=== PATIENT | female | born 1950 | race Caucasian/White ===

== ENCOUNTER 2017-10-20 08:52 | Day surgery (SDC) | payer BC, SELFPAY ==
--- NOTE | 2017-10-17 10:30 | EKG12_ITS ---
Test Reason : PRE-OP Blood Pressure : / mmHG Vent. Rate : 060 BPM Atrial Rate : 060 BPM P-R Int : 166 ms QRS Dur : 090 ms QT Int : 430 ms P-R-T Axes : 011 -07 015 degrees QTc Int : 430 ms Normal sinus rhythm Normal ECG Confirmed by KASHIF WATERMAN, MELLY ([id number]), fan mail editor JANELL LEDBETTER ([id number]) on 10/18/2017 1:30:11 PM Referred By: Danette Aranda Confirmed By:MELLY ROWLAND MD
[2017-10-17 10:43] LABS: Hemoglobin 14.3 g/dl (12.0-15.0); Mean Corp Hgb Conc 33.3 g/gl (32-36); Mean Corpuscular Hgb 30.6 pg (27.0-32.0); Mean Corpuscular Volume 92.1 fL (81-99); Mean Platelet Vol. 10.7 fl (6.2-12.0); Platelet Count 157 K/mm3 (150-450); RBC Distribution Width CV 12.7 % (11.6-14.6); Red Blood Count 4.67 M/mm3 (4.2-5.4); Scan Indicated on CBC? Y/N NO; White Blood Count 4.7 K/mm3 (4.4-11.0)
[2017-10-17 11:01] LABS: Anion Gap 6 (5-15); BUN 19 mg/dL (7-18); BUN/Creat Ratio 26.7 RATIO (10-20); Calcium,Total 9.2 mg/dL (8.5-10.1); Chloride 107 mmol/L (98-107); Creatinine, Serum 0.71 mg/dL (0.55-1.02); EST Glomerular Filtration Rate 88 mL/min (>60); Est Glom Filt Rate - Afr Amer 106 mL/min (>60); Glucose 98 mg/dL (74-106); Potassium 3.7 mmol/L (3.5-5.1); Sodium Level 139 mmol/L (136-145)
--- NOTE | 2017-10-20 | EMB_PTH ---
PATIENT: TRAE AUGUSTIN LOC: [facility] [place][id number] AGE/SX: 67/F ROOM: RE10/20/[address]: Dr. Danette Aranda, MDDOB: 1950 BED: DIS: 10/20/2017 SPEC #: [id number] RECD: 10/20/17 15:00 STATUS: LAKEISHA CECILE #: [id number] NICK: 10/20/17 00:[address]: Danette Aranda DEPT: SURGICAL PATHOLOGY RECD BY: Vernon Flower ENTERED: 10/20/17 15:01 SP TYPE: ENDOM BX/C OTHR DR: MD Dr. Anthony Barrera III, MD Tissues: A - Endometrium, NOS B - Ovary, NOS Procedures: Surgery Specimen Level IV Surgery Specimen Level V HEADER OPERATION: Laparoscopic salpingo-oophorectomy, pelvic washings PRE-OP DIAGNOSIS: Persistent left ovarian cyst TISSUE SUBMITTED: A ? Endometrial curettings, B ? Bilateral ovaries and tubes MICROSCOPIC DIAGNOSIS A. Endometrial curettings: Scant strips of benign endometrial epithelium consistent with atrophic endometrium. Fragments of hyalinized benign endometrial polyp. Fragments of benign endocervical mucosa and mucous. B. Bilateral fallopian tubes and ovaries, bilateral salpingo-oophorectomy: Bilateral fallopian tubes - no pathologic diagnosis. Bilateral ovaries ? simple serous cystadenoma (2 and 6 cm in greatest dimension). LIYA:keron 10/21/17 MICROSCOPIC DESCRIPTION Slides are reviewed. GROSS DESCRIPTION A - Received in fixative is one container labeled with the patient's name and designated endometrial curettings. The specimen consists of multiple irregular fragments of franco soft tissue mixed with hemorrhagic mucoid tissue that in aggregate measure 1.5 x 1 x 0.1 cm. The specimen is totally submitted in one cassette. B - Received in fixative is one container labeled with the patient's name and designated bilateral ovaries and tubes. The specimen consists of bilateral fallopian tubes and ovaries. The fallopian tubes and ovaries are not identified as right or left. One of the fallopian tubes measure 3.5 cm in length and 0.5 cm in diameter. The fimbrial end is identified. No tubo-ovarian adhesions are noted. Adjacent ovary measures 5 x 1 x 1 cm and weighs 5 gm. The externa surface is inked black. Sections reveal a cyst filled with clear fluid measuring 2 cm in greatest dimension. The second fallopian tube measures 4.5 cm in length and 0.5 cm in diameter. The fimbrial end appears to be adherent focally to the ovary. The fallopian tube appears to be interrupted in the middle. Also present in the container are three detached pieces of tissue which appears to be portion of fallopian tube. These pieces are inked black. The second fallopian tube appears to consist of a collapsed cyst measuring 6 x 4 x 0.5 cm and weighing 9 gm. The outer surface of the cyst is smooth and it is inked black. The inner cyst wall is smooth without any papillation. The cyst wall measures 0.1 cm in thickness. [employer] sections are submitted in seven cassettes as follows: 1-4 ? one fallopian tube and adjacent ovary (1 ? fallopian tube, 2-4 ? adjacent ovary), 5-7 ? second fallopian tube and ovary (5 ? fallopian tube and detached pieces of tissue, 6 & 7 ? ovary). / SJ:rg 10/20/17 TC: 1 CPT: 92356, 08528 x2
--- NOTE | 2017-10-20 | FLU_PTH ---
PATIENT: TRAE AUGUSTIN LOC: [facility] – [place] U#:[id number] AGE/SX: 67/F ROOM: RE10/20/[address]: Dr. Danette Aranda, MDDOB: 1950 BED: DIS: 10/20/2017 SPEC #: [id number] RECD: 10/20/17 14:59 STATUS: LAKEISHA RECarmela #: [id number] NICK: 10/20/17 00:[address]: Danette Aranda DEPT: CYTOLOGY RECD BY: Vernon Flower ENTERED: 10/20/17 15:00 SP TYPE: Fluid OTHR DR: MD Dr. Anthony Barrera III, MD Tissues: Pelvis, NOS Procedures: Pap Stain (control) Special Stain Group II Surgery Specimen Level IV Cell Block Cytospin Fluid HEADER OPERATION: Laparoscopic salpingo-oophorectomy, pelvic washings PRE-OP DIAGNOSIS: Persistent left ovarian cyst TISSUE SUBMITTED: Pelvic washings for cytology DIAGNOSIS CYTOLOGY Pelvic washings for cytology (cytospin and cell block): Negative for malignant cells. LIYA:keron 10/21/17 CYTOLOGY STUDY Slides are reviewed. The specimen is bloody and consists of benign mesothelial cells. CYTOLOGY GROSS Received is 10 ml of pink cloudy fluid labeled with the patient's name and and designated per the requisition as pelvic washings. Submitted for cytology preparation including cell block. / 10/20/17 TC:5 CPT: 67560, 79423
[2017-10-20 09:06] VITALS: BP 127/87; PULSE 80; RESP 20; TEMP 36.9; O2SAT 98; BMI 21.4
[2017-10-20] MEDS: Bupivacaine Mpf 0.5% 30 ML VIAL (13:20)
[2017-10-20] MEDS: Ondansetron 4 MG/2 ML Vial (13:47)
--- NOTE | 2017-10-20 13:51 | PCM.DC.TUB ---
Discharge Diet: No Restrictions - Increase fluid intake for the next 48 hours. Discharge Activity: Return to Normal Activity, May Drive - when you are no longer taking pain/narcotic meds., May Shower, May Take a Tub Bath - in 7 days May shower in (days): 1 May resume sexual activity in: 1 week Lifting Restrictions: 15 lbs x 2 weeks Additional Activity Instructions:: Ambulate often the next week after surgery. Nothing in the vagina for 5 days. Call your doctor if your incision/area has: Continuous Slow Oozing, Sudden Increased Bleeding, Increased Pain/ Swelling, Increased Redness, Foul Smelling Discharge Call your doctor if you observe: Fever of 101 or Higher Allergies/Adverse Reactions: Allergies nitrofurantoin macrocrystalline [From Macrodantin] Allergy (Verified 10/13/17 08:43) Rash Medications to take at Discharge Citalopram Hydrobromide [Citalopram HBr] 40 mg PO DAILY 01/03/15 Ascorbic Acid [Vitamin C] 1,000 mg PO DAILY 10/13/17 Aspirin [Aspirin EC] 81 mg PO DAILY 10/13/17 Calcium Carbonate/Vitamin D3 [Calcium 500+D Tablet Chew] 1 each PO DAILY 10/13/17 Glucosam/Josiah-Msm1/C/Baljinder/Bosw [Osteo Bi-Flex Caplet] 2 each PO DAILY 10/13/17 Multivitamin with Iron [Multivitamins with Iron] 1 each PO DAILY 10/13/17 Naproxen Sodium [Naproxen Sodium ER] 500 mg PO DAILY 10/13/17 Terbinafine HCl [Lamisil] 250 mg PO DAILY 10/13/17 Primary Care Physician: Anthony Olivo III, MD [Primary Care Provider] - Please Follow Up With: Danette Aranda MD - [phone] When: as scheduled or as needed
--- NOTE | 2017-10-20 13:55 | PCM.OP.BLANK ---
Operative Report Date of Procedure: 10/20/17 Surgeon: Dr. Danette Aranda Director Of Consumer Marketing: Mary Davenport MS3 Pre op Diagnosis: Persistent right ovarian cyst, PMB Post OP Diagnosis: same Surgery Performed: D&C, Laparoscopic Bilateral salpingoophorectomy , pelvic washings Findings: large 6cm right ovarian cyst, Left Uteroovarian ligament with Mass, ? hematoma vs cyst Complications: none EBL: <5cc Anesthesia: General Specimens: Bilateral tubes and ovaries, pelvic washings Operative Note: After informed consent was obtained patient was taken to OR and placed in supine position. Anesthesia was given. patient was placed in yellow fin stirrups and prepped and draped in normal sterile fashion. bladder was drained with straight catheter with approximately 75cc of clear yellow urine expelled. Exam under anesthesia reviewed normal sized uterus with mobile right adnexal masses. Weighted speculum placed in posterior fornix of vaginal, single tooth tenaculum was used to gently grasped anterior lip of cervix. Uterus was sounded to 6. Cervix was then gently dilated in an incremental fashion. Was adequate dilation was achieved the sharp curettage was performed which yielded scant amount of tissue. The tissue was then sent to pathology for examination. Manipulator was placed without difficulty. At this time attention was then turned the abdominal portion of the procedure. 2 towel clamps were placed on either side of the umbilicus. Tented up lidocaine was injected. Small incision was made with a knife and a 5 mm trocar was placed under direct visualization. At this time once proper placement was achieved and confirmed CO2 gas was used to insufflate the intra-abdominal cavity. Upon inspection no adhesions noted large right ovarian cyst was noted small mass on the utero-ovarian ligament was noted on the left possible hematoma versus a cyst. This time the left lower quadrant port was placed first again lidocaine was injected incision was made with a knife and a 12 mm trocar was placed under direct visualization. A right lower quadrant port was placed in the same fashion that was a 5 mm port. At this time then the IP ligament on the right side was coagulated ligated using the LigaSure along with the utero-ovarian and the mesosalpinx to ensure that the entire ovary and tube were removed completely. This was repeated on the patient's left side the cyst was not ruptured in the intra-abdominal cavity. Once both were freed the specimens were placed in the Endo Catch bag. They were brought through the left lower quadrant port. The cyst was ruptured clear fluid and the cyst in the tubes and ovaries were removed without difficulty. At this time pelvic washings were collected 30 cc of normal saline was injected into the intra-abdominal cavity and at this time a red rubber catheter was used to suction out the washings. At this time procedure was deemed complete successful. There were no complications. Hemostasis was good on all pedicles. Jewel Stoddard using 0 Vicryl suture was used to close the left lower quadrant port. Trochars were removed. Skin incisions were closed using the 4-0 Monocryl suture. Followed by Dermabond. At this time procedure was deemed complete and successful. Uterine manipulator was removed. Vaginal sweep was negative. Intstrument and lap count correct x 2. I anticipate normal postoperative course. No implantable devices
[2017-10-20 14:01] VITALS: BP 127/87; BP 142/69; PULSE 79; RESP 16; TEMP 36.1; O2SAT 91
[2017-10-20 14:15] VITALS: BP 127/87; BP 146/79; PULSE 60; RESP 16; O2SAT 93
[2017-10-20 14:30] VITALS: BP 127/87; BP 137/81; PULSE 58; RESP 16; O2SAT 94
[2017-10-20 14:42] VITALS: BP 127/87; BP 147/77; PULSE 60; RESP 16; TEMP 36.3; O2SAT 96
[2017-10-20] MEDS: HYDROcodone Bitartrate/Apap 5/325 Tablet PO (15:07)
[2017-10-20 15:43] VITALS: BP 127/87
[2017-10-24 09:38] LABS: Cytology, Body Fluid / CSF SEE PATHOLOGY REPORT
== END 2017-10-20 15:46 | disposition home or self-care (01) ==
LOC: SDC 08:52 → AC 08:57
PROVIDERS: Family Provider Family Medicine; PCP Family Medicine; Visit Provider Obstetrics & Gynecology
PROC: (CPT 58558; principal; 2017-10-20 10:10)
PROC: (CPT 58120; 2017-10-20 10:10)
DX: D27.1 Benign neoplasm of left ovary (principal); D27.0 Benign neoplasm of right ovary; N84.0 Polyp of corpus uteri; F43.23 Adjustment disorder with mixed anxiety and depressed mood; M19.042 Primary osteoarthritis, left hand; M19.041 Primary osteoarthritis, right hand; D64.9 Anemia, unspecified; F17.200 Nicotine dependence, unspecified, uncomplicated; Z79.82 Long term (current) use of aspirin; Z79.899 Other long term (current) drug therapy; Z79.891 Long term (current) use of opiate analgesic
CPT/HCPCS: 00840; 58558; 58661; 36415; 80048; 85027; 88108; 88305; 88307; 88313; 93005; J7120; J2405

== ENCOUNTER → 2022-07-28 | Outpatient (CLI) | payer MEDICARE, SELFPAY ==
--- NOTE | 2022-07-28 15:56 | NEURO ---
NCS and/or EMG Patient Report Ordering Doctor: Julio C Jeffries DATE OF SERVICE: 07/28/22 Kerline presents for electrodiagnostic testing of the right upper limb. She reports numbness and tingling in the right hand. Electrodiagnostic findings: Right median motor nerve demonstrates prolonged distal latency with reduced amplitude and reduced conduction velocity. Normal right ulnar motor response, including conduction across the elbow. Prolonged right median sensory latency at the wrist. Normal right median and ulnar F waves. On needle EMG, all muscles tested in the right upper limb showed no evidence of denervation with normal motor unit action potentials. Electrodiagnostic impression: This is an abnormal study in the right upper limb. 1. Electrodiagnostic findings demonstrate right-sided median mononeuropathy. This is consistent with a moderate to advanced right carpal tunnel syndrome. 2. No electrodiagnostic evidence is noted for cervical radiculopathy.
== END | disposition home or self-care (01) ==
PROVIDERS: PCP Family Medicine; Referring Provider Family Medicine; Visit Provider Family Medicine
DX: R20.0 Anesthesia of skin (principal); R20.2 Paresthesia of skin
CPT/HCPCS: 95886; 95909

== ENCOUNTER → 2024-05-10 | Outpatient (CLI) | payer MEDICARE, SELFPAY ==
--- NOTE | 2024-05-10 09:46 | ART_ITS ---
Procedure A bilateral lower extremity continuous wave Doppler with analog waveform analysis,segmental pressures,and ankle brachial indexes with exercise. Left Segmental Pressures Left brachial= 139mmHg. Left posterior tibial artery = 154mmHg. Left dorsalis pedis artery = 148mmHg. Left digit = 113 mmHg. The left posterior tibial artery waveforms are triphasic. The left dorsalis pedis waveforms are triphasic. Right Segmental Pressures Right brachial= 131mmHg. Right posterior tibial artery = 152mmHg. Right dorsalis pedis artery = 162mmHg. Right digit = 92 mmHg. The right posterior tibial artery waveforms are triphasic. The right dorsalis pedis waveforms are triphasic. Indices The right resting ankle brachial index is 1.17. The right ankle brachial index by the posterior tibial artery is 1.09. The right ankle brachial index by the dorsalis pedis is 1.17. The right digital-brachial index is 0.66. The right post exercise ankle brachial index is 1.02. The left resting ankle brachial index is 1.11. The left ankle brachial index by the posterior tibial artery is 1.11. The left ankle brachial index by the dorsalis pedis is 1.06. The left digital-brachial index is 0.81. The left post exercise ankle brachial index is 0.94. VL/Lower Ext Art Exam w/ Exercise Interpretation Summary Right MICHELLE 1.17, normal. Doppler/PVR waveforms of the right leg normal at rest. TBI diminished, pedal/digit disase vs spasm. Right lower extremity exhibits normal response to exercise. Left MICHELLE 1.11, normal. TBI and Doppler/PVR waveforms of the left leg normal at rest. Left lower extremity with abnormal response to exercise and post exercise MICHELLE i n the mild category. Ordering Physician: Vijaya Kelly Referring Physician: VIJAYA KELLY PA Performed By: Angela Wynne RVT, RDCS
== END | disposition home or self-care (01) ==
PROVIDERS: PCP Family Medicine; Referring Provider Physician Assistant; Visit Provider Physician Assistant
DX: I73.9 Peripheral vascular disease, unspecified (principal)
CPT/HCPCS: 93924